=== PATIENT | female | born 1940 | race Caucasian/White ===

== ENCOUNTER 2018-08-31 10:14 | Day surgery (SDC) | payer MEDICARE, MEDICAID ==
[2018-08-30 12:34] VITALS: BMI 26.6
[2018-08-31 12:13] LABS: Hemoglobin 13.1 g/dL (12.0-16.0)
[2018-08-31] MEDS ORDERED: Fentanyl 100 MCG/2 ML VIAL ONE (12:14)
[2018-08-31 12:24] LABS: Anion Gap 14 mmol/L (10-20); BUN (Urea Nitrogen) 21 mg/dL (9.8-20.1); Calc. Creatinine Clearance 53 mL/min (70-130); Calcium 9.8 mg/dL (7.8-10.44); Carbon Dioxide 28 mmol/L (23-31); Chloride 100 mmol/L (98-107); Estimated GFR-MDRD 55; Glucose 109 mg/dL (83-110); Potassium 3.7 mmol/L (3.5-5.1); Sodium 138 mmol/L (136-145)
--- NOTE | 2018-09-01 11:36 | OP ---
DATE OF PROCEDURE: 08/31/2018 PREOPERATIVE DIAGNOSIS: Left forehead squamous cell carcinoma. POSTOPERATIVE DIAGNOSIS: Left forehead squamous cell carcinoma. PROCEDURE PERFORMED: Wide local excision of forehead squamous cell carcinoma with primary closure, 6 cm2. ESTIMATED BLOOD LOSS: 10 mL. COMPLICATIONS: None. ANESTHESIA: LMA. DESCRIPTION OF PROCEDURE: The patient was taken to the operating room and placed supine on the table. LMA anesthesia was obtained by the Anesthesia Staff. 1% lidocaine with 1:100,000 epinephrine was injected into the anticipated surgical area. Following this, the patient was prepped and draped in standard surgical fashion. Following this, an elliptical type incision was made leaving a 2 cm margin around the left forehead lesion. Pathological analysis was sent for the lateral margins of the skin, which were cleared for malignancy. 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 Otherwise, the deep margin was taken all the way down to the skull. Following this, subperiosteal dissection was performed elevating the skin around this area and then 2-0 Prolene and 2-0 Vicryl stitches were used to primarily close the area. The patient tolerated the procedure well. Job ID: [id number]
--- NOTE | 2018-09-02 08:14 | EKG ---
Test Reason : PREOP Blood Pressure : / mmHG Vent. Rate : 057 BPM Atrial Rate : 057 BPM P-R Int : 180 ms QRS Dur : 074 ms QT Int : 440 ms P-R-T Axes : 055 033 023 degrees QTc Int : 428 ms Sinus bradycardia Otherwise normal ECG When compared with ECG of 30-DEC-2011 12:27, No significant change was found Confirmed by DR. Alfredo GIBBS ([id number]) on 09/02/2018 8:13:39 AM Referred By: IGOR Confirmed By:DR. Alfredo GIBBS
== END 2018-08-31 15:15 | disposition home or self-care (01) ==
LOC: SDC 10:14
PROVIDERS: ATTEND Otolaryngology Plastic Surgery within the Head & Neck
PROC: 0HB1XZX Excision of Face Skin, External Approach, Diagnostic (ICD-10-PCS; principal; 2018-08-31)
DX: C44.329 Squamous cell carcinoma of skin of other parts of face (principal); L57.8 Other skin changes due to chronic exposure to nonionizing radiation; I10 Essential (primary) hypertension; M19.90 Unspecified osteoarthritis, unspecified site; Z86.73 Personal history of transient ischemic attack (TIA), and cerebral infarction without residual deficits; Z88.5 Allergy status to narcotic agent; Z88.2 Allergy status to sulfonamides; Z88.6 Allergy status to analgesic agent; Z79.82 Long term (current) use of aspirin; Z79.899 Other long term (current) drug therapy
CPT/HCPCS: 80048; 85014; 85018; 88305; 88331; 93005; 93010; J3010